=== PATIENT | female | born 1975 | race Caucasian/White ===

== ENCOUNTER → 2018-10-05 14:02 | Outpatient (CLI) | payer OTHER, SELFPAY ==
--- NOTE | 2018-10-05 14:09 | XR_ITS ---
XR knee RT 3V HISTORY: ITS.REASON: RT KNEE PAIN ORDERING PHYSICIAN: Leah Carrera PATIENT AGE: 43 years COMPARISON: None FINDINGS: No fracture or dislocation. No lytic or blastic change. Normal mineralization. There are mild osteoarthritic changes of the medial compartment with mild spurring medially. IMPRESSION: Mild osteoarthritis of the medial compartment
--- NOTE | 2018-10-05 14:09 | XR_ITS ---
EXAM: XR lumbar spine 2-3V HISTORY: ITS.REASON: LOW BACK PAIN ORDERING PHYSICIAN: Leah Carrera PATIENT AGE: 43 years COMPARISON: None FINDINGS: Normal alignment. No fracture or dislocation. No lytic or blastic change. Mild degenerative disc disease is present in the lower thoracic spine and at L3-L4.. There is a 3 mm stone overlying the upper pole the left kidney. There is a 6 mm oval density overlying the tip of the L4 transverse process on the left. This may be related to artifact versus a ureteral stone. CT may be of further value IMPRESSION: 1. Mild degenerative changes of the thoracic spine. 2. Left nephrolithiasis. 3. Possible left mid ureteral stone which may be better evaluated with CT if clinically desired
== END ==
PROVIDERS: PCP Nurse Practitioner Family; Visit Provider Nurse Practitioner Family
DX: M54.5 Low back pain (principal); M25.561 Pain in right knee
CPT/HCPCS: 72100; 73562

== ENCOUNTER 2018-10-18 15:00 | Outpatient (RCR) | payer OTHER, SELFPAY | END 2018-10-18 15:05 | disposition home or self-care (01) | LOC: PT 15:00 | PROVIDERS: Visit Provider Nurse Practitioner Family | DX: M54.5 Low back pain (principal); M25.561 Pain in right knee | CPT/HCPCS: 97010; 97014; 97110; 97163; G0283 ==

== ENCOUNTER → 2019-06-07 12:58 | Outpatient (CLI) | payer OTHER, SELFPAY ==
--- NOTE | 2019-06-07 13:03 | MM_ITS ---
PROCEDURE: MM DIG SCREENING MAMM BI W/CAD CLINICAL INDICATION: SCREENING There is no personal or family history of breast cancer. COMPARISON: None, this is baseline screening exam TECHNIQUE: Standard CC and MLO images were obtained. R2 CAD reviewed. FINDINGS: The breasts are composed primarily of fat with minimal scattered fibroglandular densities throughout each breast. There is no suspicious lesion and no suspicious microcalcifications. IMPRESSION: Fatty type breast parenchyma with no suspicious lesions seen BI-RAD Category: 1 Negative FOLLOW-UP: 1YR 1 Year Follow-up (A letter has been sent to the patient regarding results of the study.) Dictated by: Dr. Tye Gutierrez MD 06/08/2019 12:[address] Tye Gutierrez MD in [place] 06/08/2019 12:11
== END ==
PROVIDERS: PCP Nurse Practitioner Family; Visit Provider Nurse Practitioner Family
DX: Z12.31 Encounter for screening mammogram for malignant neoplasm of breast (principal)
CPT/HCPCS: 77067

== ENCOUNTER → 2019-06-08 08:05 | Outpatient (CLI) | payer OTHER, SELFPAY ==
--- NOTE | 2019-06-08 08:07 | US_ITS ---
PROCEDURE: US GALLBLADDER CLINICAL INDICATION: UPPER ADB PAIN Cramping and diarrhea after eating COMPARISON: No exams were available for comparison FINDINGS: Pancreas: Unremarkable/Not well seen Liver: Unremarkable. There is appropriate direction of blood flow within a non dilated portal vein. Right kidney: Unremarkable appearing. No hydronephrosis. Gallbladder: No stones are evident. There is no gallbladder wall thickening. Common duct is normal in diameter. IMPRESSION: Negative gallbladder ultrasound. No stones evident. Dictated by: Zelalem Armijo MD 06/08/2019 11:22 Electronically signed by Zelalem Armijo MD in [place] 06/08/2019 11:22
== END ==
PROVIDERS: PCP Nurse Practitioner Family; Visit Provider Nurse Practitioner Family
DX: R10.10 Upper abdominal pain, unspecified (principal)
CPT/HCPCS: 76705

== ENCOUNTER → 2019-08-14 10:07 | Outpatient (CLI) | payer MEDICAID, SELFPAY ==
--- NOTE | 2019-08-14 10:22 | NM_ITS ---
PROCEDURE: NM HEPATOBILIARY W PHARM CLINICAL INDICATION: RUQ PAIN COMPARISON: No exams were available for comparison TECHNIQUE: DOSE: 8.03 mCi technetium Choletec and 1.9 mcg of CCK. No pain reported with CCK infusion FINDINGS: Homogeneous activity is present within the hepatic parenchyma. Activity is present in the gallbladder by 15 minutes. Activity is present in the small bowel by 30 minutes. The gallbladder ejection fraction is calculated to be 78 percent. CCK-The patient did not report pain or other symptoms during CCK infusion. IMPRESSION: Unremarkable exam. No evidence of common or cystic duct obstruction with normal gallbladder ejection fraction Dictated by: Zelalem Armijo MD 08/14/2019 15:43 Electronically signed by Zelalem Armijo MD in [place] 08/14/2019 15:43
--- NOTE | 2019-08-14 10:57 | HMH.ITSHM ---
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 []OMEPRAZOLE CITALOPRAM AMOXICILLIN MELOXICAM QUETIAPINE IBUPROFEN
== END ==
PROVIDERS: PCP Nurse Practitioner Family; Referring Provider Nurse Practitioner Family; Visit Provider Nurse Practitioner Family
DX: R10.10 Upper abdominal pain, unspecified (principal)
CPT/HCPCS: 78227; A9537; J2805

== ENCOUNTER 2021-01-23 16:11 | Emergency (ER) | payer MEDICAID, SELFPAY ==
[2021-01-23 16:26] VITALS: BP 126/95; PULSE 77; RESP 20; TEMP 36.8; O2SAT 99; BMI 28.2
--- NOTE | 2021-01-23 16:29 | XR_ITS ---
PROCEDURE INFORMATION: Exam: XR Right Elbow Exam date and time: 01/23/2021 4:29 PM Age: 46 years old Clinical indication: Pain; Right; Patient HX: Hit elbow on door knob a few days ago TECHNIQUE: Imaging protocol: XR Right elbow. Views: 3 or more views. COMPARISON: No relevant prior studies available. FINDINGS: Bones/joints: Bones appear intact and normally aligned with normal mineralization. No significant arthritic deformities. There are no lytic skeletal lesions seen. No significant joint effusion visible. Soft tissues: Minimal posterior soft tissue swelling. No radiopaque foreign bodies. No pathologic soft tissue calcification. IMPRESSION: No acute findings.
--- NOTE | 2021-01-23 17:05 | HMH.EDUTC ---
[facility] [place] Clinical Impression: Right elbow tendonitis Contusion of right elbow Qualifiers: Encounter type: initial encounter Qualified Code(s): S50.01XA - Contusion of right elbow, initial encounter Disposition: Home, Self-Care Condition on Discharge: Good Instructions: Contusion, DI for Elbow Pain, How to Apply an Elastic Wrap on Elbow Additional Instructions: Rest the extremity, Elevate the extremity as tolerated while you are resting. Take ibuprofen for pain. I sent in a prescription to your pharmacy. Follow up with Dr. Mims (orthopedics). I put in a referral but you need to call his office and schedule an appointment. Follow up with your regular doctor. GO TO THE ER FOR ANY WORSENING SYMPTOMS Prescriptions: Ibuprofen [Ibuprofen 600mg Tablet] 600 mg PO Q6HP PRN #30 tab PRN Reason: Mild Pain Transmission Status: Received by [facility] Referrals: Leah Carrera [Primary Care Provider] - Abad Mims MD [Staff Physician] - Time of Disposition: 17:10 Medical Decision Making - Medical Records Medical records reviewed: No: I reviewed the patient's medical records. - Yobani Inquiry Pt receiving controlled substance: No Vital Signs: 01/23/21 16:26 01/23/21 17:13 Temperature 98.2 F 98.2 F Temperature Source Oral Pulse Rate 73 Pulse Rate [Right] 77 Respiratory Rate 20 18 Blood Pressure 124/91 H Blood Pressure [Right Arm] 126/95 H Blood Pressure Mean [Right Arm] 105 Blood Pressure Source [Right Arm] Automatic Cuff Blood Pressure Position [Right Arm] Sitting 02 Sat by Pulse Oximetry 99 - Radiology Data #1 Image(s): Elbow Image Reviewed: Yes I reviewed the patient's radiology image, Yes I have reviewed radiologist's interpretation Preliminary Findings: Normal/NAD, No Fracture Seen PROCEDURE INFORMATION: Exam: XR Right Elbow Exam date and time: 01/23/2021 4:29 PM Age: 46 years old Clinical indication: Pain; Right; Patient HX: Hit elbow on door knob a few days ago TECHNIQUE: Imaging protocol: XR Right elbow. Views: 3 or more views. COMPARISON: No relevant prior studies available. FINDINGS: Bones/joints: Bones appear intact and normally aligned with normal mineralization. No significant arthritic deformities. There are no lytic skeletal lesions seen. No significant joint effusion visible. Soft tissues: Minimal posterior soft tissue swelling. No radiopaque foreign bodies. No pathologic soft tissue calcification. IMPRESSION: No acute findings. [facility] [place] HPI - General Stated complaint: pain R arm/elbow Time Seen by Provider: 01/23/21 17:05 Mode of Arrival: Ambulatory Source of Information: Patient Limitations: No Limitations Description of Symptoms (Recalled from Triage Doc. by RN): pt c/o R elbow pain ongoing for one week. she states she hit it on a door knob a week ago. HEENT Symptoms (Recalled from RN notes): No Resp Symptoms (Recalled from RN notes): No Skin Symptoms (Recalled from RN notes): No MS Symptoms (Recalled from RN notes): Yes (R elbow pain) Functional Status (Recalled from RN notes): na - History of Present Illness Provider Complaint: She states that about 7 days ago she accidentily hit her right elbow on a door knob. She states that she hit it hard. She has had pain, tenderness and swelling of her right elbow since then. - Related Data Previous Rx's Medication Instructions Recorded Ibuprofen [Ibuprofen 600mg 600 mg PO Q6HP PRN #30 tab 01/23/21 Tablet] Allergies Allergy/AdvReac Type Severity Reaction Status Date / Time No Known Drug Allergies Allergy Unknown Verified 01/23/21 16:30 [NKDA] - Worker's Comp Is this a Worker's Comp case?: No [facility] History - Hepatitis A Screen Drug use history?: No High risk sexual behaviors?: No History of sexually transmitted infection?: No Currently employed?: No [employer]
[2021-01-23 17:13] VITALS: BP 124/91; PULSE 73; RESP 18; TEMP 36.8
== END 2021-01-23 17:14 | disposition home or self-care (01) ==
PROVIDERS: Emergency Provider Nurse Practitioner Family; PCP Nurse Practitioner Family
DX: S50.01XA Contusion of right elbow, initial encounter (principal); W22.09XA Striking against other stationary object, initial encounter; Y92.019 Unspecified place in single-family (private) house as the place of occurrence of the external cause
CPT/HCPCS: 73080; 99202; G0463

== ENCOUNTER → 2021-04-08 09:19 | Outpatient (CLI) | payer MEDICAID, SELFPAY | PROVIDERS: PCP Nurse Practitioner Family; Visit Provider Nurse Practitioner | DX: Z20.822 Contact with and (suspected) exposure to COVID-19 (principal) | CPT/HCPCS: C9803; U0003; U0005 ==

== ENCOUNTER → 2021-08-19 17:38 | Outpatient (CLI) | payer MEDICAID, SELFPAY | PROVIDERS: PCP Nurse Practitioner Family; Visit Provider Nurse Practitioner | DX: Z20.822 Contact with and (suspected) exposure to COVID-19 (principal) | CPT/HCPCS: C9803; U0003; U0005 ==

== ENCOUNTER 2021-08-23 14:52 | Emergency (ER) | payer MEDICAID, SELFPAY ==
[2021-08-23 16:25] VITALS: BP 0/0; PULSE 0; RESP 0; TEMP -17.7; TEMP 0
== END 2021-08-23 16:30 | disposition left against medical advice (07) ==
LOC: UTC 14:54
PROVIDERS: Emergency Provider Nurse Practitioner Family; PCP Nurse Practitioner Family
DX: Z53.21 Procedure and treatment not carried out due to patient leaving prior to being seen by health care provider (principal)

== ENCOUNTER 2021-10-28 12:55 | Emergency (ER) | payer MEDICAID, SELFPAY ==
[2021-10-28 13:40] VITALS: BP 131/104; PULSE 88; RESP 18; TEMP 36.7; O2SAT 97; BMI 33.6
[2021-10-28 14:06] LABS: UTC Influenza A Antigen Positive (Negative); UTC Influenza B Antigen Negative (Negative)
[2021-10-28 14:20] VITALS: BP 131/104; PULSE 88; RESP 18; TEMP 36.7; O2SAT 97
--- NOTE | 2021-10-28 14:58 | HMH.EDUTC ---
[facility] [place] Disposition Clinical Impression: Influenza A Disposition: Home, Self-Care Condition on Discharge: Good Instructions: Influenza, DI for Influenza -- Adult Additional Instructions: Drink plenty of fluids. Take tylenol or ibuprofen for pain or fever. Take the medications as directed. Follow up with your regular doctor. GO TO THE ER FOR ANY WORSENING SYMPTOMS The cough medication (promethazine dm) will make you drowsy, so don't drive or operate heavy machinery after taking it. Prescriptions: Albuterol Sulfate [Albuterol Sulfate Hfa] 2 puffs IH Q6HP PRN 30 Days #1 each PRN Reason: Shortness Of Breath Transmission Status: Received by [facility] Promethazine/Dextromethorphan [Promethazine-Dm Syrup] 5 ml PO Q6HP PRN #240 ml PRN Reason: Cough Transmission Status: Received by [facility] Benzonatate [Benzonatate 100mg cap] 100 mg PO TIDP PRN #30 cap PRN Reason: Cough Transmission Status: Received by [facility] methylPREDNISolone [Medrol] 4 mg PO DIRECTED 6 Days #21 packet Transmission Status: Received by [facility] Oseltamivir Phosphate [Tamiflu 75mg Capsule] 75 mg PO BID #10 cap Transmission Status: Received by [facility] Azithromycin [Z-César 250mg Tab*] 250 mg PO UD DOSE PK #6 tab Transmission Status: Received by [facility] Referrals: Leah Carrera [Primary Care Provider] - Forms: Work/School Release Time of Disposition: 15:00 Medical Decision Making - Medical Records Medical records reviewed: No: I reviewed the patient's medical records. - Yobani Inquiry Pt receiving controlled substance: No Vital Signs: 10/28/21 13:40 10/28/21 14:20 Temperature 98.1 F 98.1 F Temperature Source Oral Pulse Rate 88 Pulse Rate [Right Brachial] 88 Respiratory Rate 18 18 Blood Pressure 131/104 H Blood Pressure [Right Arm] 131/104 H Blood Pressure Mean [Right Arm] 113 Blood Pressure Source [Right Arm] Automatic Cuff Blood Pressure Position [Right Arm] Sitting 02 Sat by Pulse Oximetry 97 Oxygen Delivery Method Room Air - Lab Data Lab results reviewed: Yes: I reviewed the patient's lab results. Lab Results 10/28/21 13:47: Influenza Type A Ag Positive A, Influenza Type B Ag Negative [facility] [place] HPI - General Stated complaint: cough, runny nose, congestion, chills Time Seen by Provider: 10/28/21 14:58 Mode of Arrival: Ambulatory Source of Information: Patient Limitations: No Limitations Description of Symptoms (Recalled from Triage Doc. by RN): PATIENT C/O COUGH, SNEEZING, RUNNY NOSE, HOT FLASHES AND COLD SWEATS X 2 DAYS HEENT Symptoms (Recalled from RN notes): Yes Resp Symptoms (Recalled from RN notes): Yes Skin Symptoms (Recalled from RN notes): No MS Symptoms (Recalled from RN notes): No Functional Status (Recalled from RN notes): WNL - History of Present Illness Provider Complaint: She c/o chilling, low grade fever, malaise and sore throat for the past 3 days. - Related Data Previous Rx's Medication Instructions Recorded Ibuprofen [Ibuprofen 600mg 600 mg PO Q6HP PRN #30 tab 01/23/21 Tablet] Albuterol Sulfate [Albuterol 2 puffs IH Q6HP PRN 30 Days #1 each 10/28/21 Sulfate Hfa] Azithromycin [Z-César 250mg Tab*] 250 mg PO UD DOSE PK #6 tab 10/28/21 Benzonatate [Benzonatate 100mg 100 mg PO TIDP PRN #30 cap 10/28/21 cap] Oseltamivir Phosphate [Tamiflu 75 mg PO BID #10 cap 10/28/21 75mg Capsule] Promethazine/Dextromethorphan 5 ml PO Q6HP PRN #240 ml 10/28/21 [Promethazine-Dm Syrup] methylPREDNISolone [Medrol] 4 mg PO DIRECTED 6 Days #21 10/28/21 packet Allergies Allergy/AdvReac Type Severity Reaction Status Date / Time No Known Drug Allergies Allergy Unknown Verified 01/23/21 16:30 [NKDA] - Worker's Comp Is this a Worker's Comp case?: No [facility] History - Hepatitis A Screen Drug use history?: No High risk sexual be
== END 2021-10-28 15:11 | disposition home or self-care (01) ==
PROVIDERS: Emergency Provider Nurse Practitioner Family; PCP Nurse Practitioner Family
DX: J10.1 Influenza due to other identified influenza virus with other respiratory manifestations (principal)
CPT/HCPCS: 87804; 99212; G0463